=== PATIENT | female | born 1975 | race Two or more races ===

== ENCOUNTER 2018-01-23 10:52 | Inpatient (IN) | payer OTHER ==
[~2018-01-23] VITALS: Ht 157.5 cm; Wt 84.4 kg
[~2018-01-23 10:52] MED LIST: MEDROL4 MG PO; PROVENTIL S1 ML/5 MG; PROVENTIL0.5 ML/2.5 IH; TUSSIONEX PENNKI5 ML PO; ZITHROMAX500 MG PO
[2018-01-25] MEDS ORDERED: MEDROLPACK PO (17:13)
== END 2018-01-25 17:52 | disposition home or self-care (01) | DRG 60 ==
LOC: ER 10:52 → MEDI 18:39
PROC: B246ZZZ Ultrasonography of Right and Left Heart (ICD-10-PCS; 2018-01-23)
PROC: B030YZZ Magnetic Resonance Imaging (MRI) of Brain using Other Contrast (ICD-10-PCS; 2018-01-23)
PROC: 30233N1 Transfusion of Nonautologous Red Blood Cells into Peripheral Vein, Percutaneous Approach (ICD-10-PCS; principal; 2018-01-24)
DX: G35 Multiple sclerosis (principal); D50.8 Other iron deficiency anemias
CPT/HCPCS: 70552

== ENCOUNTER 2019-03-28 08:49 | Emergency (ER) | payer OTHER ==
[~2019-03-28] VITALS: Ht 157.5 cm; Wt 85.3 kg
[~2019-03-28 08:49] MED LIST changes: +MEDROLPACK PO
[2019-03-28] MEDS ORDERED: NAPR500T14 PO (15:35)
[2019-03-28] MEDS ORDERED: PROTONIX40 MG PO (15:36)
== END 2019-03-28 15:51 | disposition home or self-care (01) ==
LOC: ER 08:49 → CPU-OBS 10:34 → ER 15:51
DX: R07.89 Other chest pain (principal)
CPT/HCPCS: G0378; G0379; 93005